=== PATIENT | female | born 1965 | race Caucasian/White ===

== ENCOUNTER 2023-01-20 15:04 | Emergency (ER) | payer OTHER ==
[~2023-01-20] VITALS: Ht 165.1 cm; Wt 56.8 kg
[2023-01-20 15:35] VITALS: BP 85/56
--- NOTE | 2023-01-20 15:38 | NUR ---
Pt in [facility]. Pt fell on 01/18. Pt has since had her tooth fall out, and her upper front teeth feel loose. Pt educated to POC. Pt in agreement. Pending providers eval and treatment.
[2023-01-20] MEDS ORDERED: oxyCODONE/APAP 5-325mg tablet PO ONE (15:50)
[2023-01-20] MEDS ORDERED: OXYC-149 PO (16:18)
== END 2023-01-20 16:44 | disposition home or self-care (01) ==
LOC: ER 15:05
DX: S00.12XA Contusion of left eyelid and periocular area, initial encounter (principal); S00.31XA Abrasion of nose, initial encounter; W19.XXXA Unspecified fall, initial encounter; Y93.89 Activity, other specified; Y92.89 Other specified places as the place of occurrence of the external cause; Y99.8 Other external cause status
CPT/HCPCS: 70486; 99284